=== PATIENT | female | born 1990 | race Two or more races ===

== ENCOUNTER 2020-11-11 09:32 | Emergency (ER) | payer MEDICAID, OTHER ==
[~2020-11-11] VITALS: Ht 157.5 cm; Wt 110.2 kg
[2020-11-11 10:33] VITALS: BP 154/95
[2020-11-11 10:33] LABS: Urine Bacteria FEW /hpf (None Seen); Urine Blood Negative /uL (Negative); Urine Mucus FEW (None Seen); Urine Specific Gravity 1.024 (1.001-1.035); Urine WBC 101 /hpf (0 - 5)
[2020-11-11 10:41] LABS: Basophils # (auto) 0.1 10 ^3/uL (0-0.2); Basophils % (auto) 0.8 % (0.0-2.0); Eosinophils # (auto) 0.1 10 ^3/uL (0-0.8); Eosinophils % (auto) 1.4 % (0.0-7.0); Hematocrit 41.7 % (36.0-46.0); Hemoglobin 14.8 g/dL (12.2-16.2); Lymphocytes # (auto) 2.3 10 ^3/uL (0.4-5.4); Lymphocytes % (auto) 23.1 % (10.0-50.0); Mean Corpuscular Hemoglobin 29.4 pg (28.0-32.0); Mean Corpuscular Hgb Conc. 35.5 g/dL (32.0-36.0); Mean Corpuscular Volume 82.7 fL (80.0-100.0); Monocytes # (auto) 0.6 10 ^3/uL (0-1.3); Monocytes % (auto) 5.9 % (0.0-12.0); Neutrophils # (auto) 6.8 10 ^3/uL (1.6-8.6); Neutrophils % (auto) 68.8 % (37.0-80.0); Red Blood Cells 5.04 10^6/uL (4.0-5.20); Red Cell Distribution Width 13.1 % (11.8-14.3); White Blood Cell 9.9 10^3/uL (4.4-10.8)
[2020-11-11 11:08] LABS: Albumin 3.7 g/dL (3.4-5.0); Potassium 3.9 mmol/L (3.5-5.1)
[2020-11-11 11:16] LABS: BUN/Creatinine Ratio 12.2; Bilirubin, Total 0.6 mg/dL (0.2-1.0); Total Protein 8.1 g/dL (6.4-8.2)
[2020-11-11] MEDS ORDERED: traMADol HCL 50 MG TAB PO ONE (12:30)
== END 2020-11-11 12:49 | disposition home or self-care (01) ==
LOC: ER 09:32
DX: N39.0 Urinary tract infection, site not specified (principal)
CPT/HCPCS: 36415; 74176; 80053; 81001; 81025; 85025

== ENCOUNTER 2021-03-10 17:43 | Emergency (ER) | payer MEDICAID ==
[~2021-03-10] VITALS: Ht 157.5 cm; Wt 96.6 kg
[2021-03-10 21:23] VITALS: BP 145/82
== END 2021-03-10 21:24 | disposition home or self-care (01) ==
LOC: ER 17:43
DX: R10.9 Unspecified abdominal pain (principal); R09.89 Other specified symptoms and signs involving the circulatory and respiratory systems; E11.9 Type 2 diabetes mellitus without complications
CPT/HCPCS: 74176